=== PATIENT | female | born 1980 | race American Indian/Alaskan Native ===

== ENCOUNTER 2017-07-19 13:16 | Emergency (ER) | payer MEDICAID ==
[2017-07-19 13:28] VITALS: BP 120/66
--- NOTE | 2017-07-19 16:11 | Emergency Department Report ---
Minor Respiratory - HPI Chief Complaint: Upper Respiratory Infection Stated Complaint: COLD SYMPTOMS Time Seen by Provider: 07/19/17 15:57 Duration: 3 Days Pain Location: Nose Severity: mild (congestion) Minor Respiratory: Yes Rhinorrhea, Yes Able to Tolerate Fluids, Yes Cough, No Sore Throat, No Ear Pain, No Sick Contacts, No Hemoptysis, No Chest Pain, No Shortness of Breath, No Fever Other History: This is a 37-year-old -Indian female presents with congestion, headache, nausea with abdominal cramping for 3 days. Patient reports taking Claritin for 2 days with no improvement of symptoms. He has not been around any sick contacts. She had a productive cough with yellowish green mucus. She thought it was allergies and started taking claritin with no improvement of symptoms. She is also complaining of vaginal discharge that is creamy white with no odor for 2 days. Her last menstrual period was 2017. She is still concerns include potentially be or an STD. Denies frequency, urgency, dysuria, chest pain, shortness of breath, fever, vomiting, and body ache. ED Review of Systems ROS: Stated complaint: COLD SYMPTOMS Other details as noted in HPI Constitutional: denies: chills, fever ENT: congestion. denies: ear pain, throat pain Respiratory: cough. denies: shortness of breath, wheezing Cardiovascular: denies: chest pain, palpitations, syncope Gastrointestinal: nausea. denies: abdominal pain, vomiting, diarrhea Genitourinary: discharge. denies: urgency, dysuria Neurological: denies: headache, weakness, paresthesias Psychiatric: denies: anxiety, depression ED Past Medical Hx - Past Medical History Previous Medical History?: No - Surgical History Past Surgical History?: No - Social History Smoking Status: Current Every Day Smoker Substance Use Type: None - Medications Home Medications: Home Medications Medication Instructions Recorded Confirmed Last Taken Type Cetirizine HCl [Zyrtec] 10 mg PO DAILY #30 tablet 07/19/17 Unknown Rx Fluticasone [Flonase] 1 spray NS QDAY #1 bottle 07/19/17 Unknown Rx Guaifenesin/Pseudoephedrne HCl [Ra 1 each PO BID 7 Days #14 tab.er.12h 07/19/17 Unknown Rx Mucus Relief D ER 600-60 mg] Minor Respiratory Exam - Exam General: Vital signs noted. No distress. Alert and acting appropriately. HEENT: Yes Moist Mucous Membranes, No Pharyngeal Erythema, No Pharyngeal Exudates, No Rhinorrhea (turbinates mildly congested and clear discharge), No Conjuctival Injection, No Frontal Tenderness, No Maxillary Tenderness Ear: Neither TM Bulge, Neither TM Erythema, Neither EAC Pain, Neither EAC Discharge Neck: Yes Supple, No Adenopathy Lungs: Yes Good Air Exchange, Yes Cough, No Wheezes, No Ronchi, No Stridor, No Labored Respirations, No Retractions, No Use of Accessory Muscles, No Other Abnormal Lung Sounds Heart: Yes Regular, No Murmur Abdomen: Yes Normal Bowel Sounds, No Tenderness, No Peritoneal Signs Skin: No Rash, No Edema Neurologic: Alert and oriented, no deficits. Musculoskeletal: Unremarkable. ED Course Vital Signs 07/19/17 13:24 Temperature 97.9 F Pulse Rate 74 Respiratory 18 Rate Blood Pressure 120/66 O2 Sat by Pulse 100 Oximetry ED Medical Decision Making - Medical Decision Making 37 y.o. female that presents with URI symptoms and vaginal discharge. Patient examined by me and stable. No distress noted. Vitals stable. Obtained UA and urine tests both normal. Discharged home stable. Start Zyrtec, Flonase, Sudafed with guaifenesin. Follow up with primary care provider in 2-3 days. Critical care attestation.: If time is entered above; I have spent that time in minutes in the direct care of this critically ill patient, excluding procedure time. ED Disposition Clinical Impression: Upper respiratory disease, Vaginal discharge Disposition: - TO HOME OR SELFCARE Is pt being admited?: No Does the pt Need Aspirin: No Condition: Stable Instructions: Upper Respiratory Infection (ED) Additional Instructions: Increase fluid intake and rest. Wash hands frequently. Continue taking tylenol or ibuprofen to control fever. F/U with Primary Care Provider in 2-3 days. Return to ER if fever, SOB, or difficulty breathing after 48 hours of supportive care. Prescriptions: Cetirizine HCl [Zyrtec] 10 mg PO DAILY #30 tablet Fluticasone [Flonase] 1 spray NS QDAY #1 bottle Guaifenesin/Pseudoephedrne HCl [Ra Mucus Relief D ER 600-60 mg] 1 each PO BID 7 Days #14 tab.er.12h Referrals: [facility] [Outside] - 3-5 Days [facility] [Outside] - 3-5 Days [facility] [Outside] - 3-5 Days Forms: Work/School Release Form(ED) Time of Disposition: 16:58 Print Language: ROMANSH
[2017-07-19 16:26] LABS: Bilirubin,Urine NEG (Negative); Blood,Urine NEG (Negative); Color,Urine Yellow (Yellow); HCG Qualitative,Urine Negative (Negative); Mucus,Urine 1+ /HPF; Protein,Urine <15 mg/dL mg/dL (Negative); Urobilinogen,Urine < 2.0 mg/dL (<2.0)
== END 2017-07-19 17:14 | disposition home or self-care (01) ==
LOC: ED 13:16
DX: J06.9 Acute upper respiratory infection, unspecified (principal); F17.200 Nicotine dependence, unspecified, uncomplicated
CPT/HCPCS: 81001; 81025; 99283

== ENCOUNTER 2017-08-24 08:58 | Emergency (ER) | payer MEDICAID ==
[2017-08-24 09:31] VITALS: BP 106/61
== END 2017-08-24 11:40 | disposition left against medical advice (07) ==
LOC: ED 08:58
DX: O26.859 Spotting complicating pregnancy, unspecified trimester (principal); Z3A.00 Weeks of gestation of pregnancy not specified; Z53.21 Procedure and treatment not carried out due to patient leaving prior to being seen by health care provider

== ENCOUNTER 2018-04-11 16:15 | Emergency (ER) | payer MEDICAID ==
--- NOTE | 2018-04-11 16:31 | Emergency Department Report ---
Blank Doc - Documentation Documentation: 37-year-old female that presents to the ED for a pelvic cramping x months. Jona mariscal denies other complaints. Pain is about 9/10. Also has some vaginal discharge. Denies urinary symptoms. Well order labs Sent to [facility] for further evaluation and treatment
[2018-04-11 17:58] LABS: Bacteria,Urine 1+ /HPF (Negative); Bilirubin,Urine NEG (Negative); Blood,Urine NEG (Negative); Color,Urine Yellow (Yellow); Mucus,Urine 3+ /HPF; Urobilinogen,Urine < 2.0 mg/dL (<2.0)
[2018-04-11 18:01] LABS: HCG Qualitative,Urine Negative (Negative)
--- NOTE | 2018-04-11 20:11 | Emergency Department Report ---
ED Female HPI - General Chief complaint: Puncture Wound Stated complaint: ABD PAIN/STD CHECK Time Seen by Provider: 04/11/18 16:20 Source: patient Mode of arrival: Ambulatory Limitations: No Limitations - History of Present Illness Initial comments: This is a 37-year-old female nontoxic, well nourished in appearance, no acute signs of distress presents to the ED with c/o of vaginal discharge. Patient denies any vaginal pain or swelling. Patient denies any vaginal ulcers or lesions. Patient also stated has intermittent pelvic cramping x5 months. Patient denies any nausea, vomiting, chest pain, shortness of breathe, fever, chills, headache, back pain, numbness, tingling, stiff neck. Patient denies any urinary symptoms. Patient denies any allergies or PMH. MD Complaint: vaginal discharge -: week(s) Severity scale (0 -10): 3 Quality: cramping Consistency: intermittent, now resolved Improves with: none Worsens with: none Are you Now?: No Associated Symptoms: vaginal discharge. denies: vaginal bleeding, abdominal pain, nausea/vomiting, fever/chills, headaches, loss of appetite, dysuria, hematuria, rash, seizure, shortness of breath, syncope, weakness - Related Data Sexually active: Yes Previous Rx's Medication Instructions Recorded Last Taken Type Cetirizine HCl [Zyrtec] 10 mg PO DAILY #30 tablet 07/19/17 Unknown Rx Fluticasone [Flonase] 1 spray NS QDAY #1 bottle 07/19/17 Unknown Rx Guaifenesin/Pseudoephedrne HCl [Ra 1 each PO BID 7 Days #14 tab.er.12h 07/19/17 Unknown Rx Mucus Relief D ER 600-60 mg] metroNIDAZOLE [Flagyl] 500 mg PO Q12HR #14 tab 04/11/18 Unknown Rx Allergies Allergy/AdvReac Type Severity Reaction Status Date / Time plastic Allergy Rash Uncoded 07/19/17 13:24 ED Review of Systems ROS: Stated complaint: ABD PAIN/STD CHECK Other details as noted in HPI Constitutional: denies: chills, fever Eyes: denies: eye pain, eye discharge, vision change ENT: denies: ear pain, throat pain Respiratory: denies: cough, shortness of breath, wheezing Cardiovascular: denies: chest pain, palpitations Endocrine: no symptoms reported Gastrointestinal: denies: abdominal pain, nausea, diarrhea Genitourinary: discharge. denies: urgency, dysuria Musculoskeletal: denies: back pain, joint swelling, arthralgia Skin: denies: rash, lesions Neurological: denies: headache, weakness, paresthesias Psychiatric: denies: anxiety, depression Hematological/Lymphatic: denies: easy bleeding, easy bruising ED Past Medical Hx - Social History Smoking Status: Current Every Day Smoker Substance Use Type: Alcohol, Marijuana - Medications Home Medications: Home Medications Medication Instructions Recorded Confirmed Last Taken Type Cetirizine HCl [Zyrtec] 10 mg PO DAILY #30 tablet 07/19/17 Unknown Rx Fluticasone [Flonase] 1 spray NS QDAY #1 bottle 07/19/17 Unknown Rx Guaifenesin/Pseudoephedrne HCl [Ra 1 each PO BID 7 Days #14 tab.er.12h 07/19/17 Unknown Rx Mucus Relief D ER 600-60 mg] metroNIDAZOLE [Flagyl] 500 mg PO Q12HR #14 tab 04/11/18 Unknown Rx ED Physical Exam - General Limitations: No Limitations General appearance: alert, in no apparent distress - Head Head exam: Present: atraumatic, normocephalic - GI/Abdominal GI/Abdominal exam: Present: soft, normal bowel sounds. Absent: distended, tenderness, guarding, rebound, rigid, diminished bowel sounds - External exam: Present: other (lightning protection installer Alexandria RN present during exam). Absent: erythema, swelling, lesions, lacerations, ecchymosis, bleeding Speculum exam: Present: cervical discharge, other (lightning protection installer Alexandria RN present during exam). Absent: erythema, vaginal discharge, vaginal bleeding, foreign body, tissue, laceration Bi-manual exam: Present: normal bi-manual exam, other (lightning protection installer Alexandria RN present during exam). Absent: cervical motion tendernes, adnexal tenderness, adnexal mass, uterine enlargement, uterine tenderness - Extremities Exam Extremities exam: Present: normal inspection, full ROM - Back Exam Back exam: Present: normal inspection, full ROM - Neurological Exam Neurological exam: Present: alert, oriented X3 - Psychiatric Psychiatric exam: Present: normal affect, normal mood - Skin Skin exam: Present: warm, dry, intact, normal color. Absent: rash ED Course Vital Signs 04/11/18 16:29 Temperature 97.9 F Pulse Rate 80 Respiratory 16 Rate Blood Pressure 115/44 O2 Sat by Pulse 97 Oximetry - Reevaluation(s) Reevaluation #1: 04/11/18 20:12 Patient is speaking in full sentences with no signs of distress noted. ED Medical Decision Making - Medical Decision Making This is a 37-year-old female that presents with BV. Patient is stable was examined by me. There is no abdominal tenderness. No pelvic pain. UA obtained. Wet prep obtained. Gonorrhea chlamydia swab pending. Patient was instructed to return in 3-5 days for GC results. Patient was instructed to Follow-up with a primary care doctor in 3-5 days or if symptoms worsen and continue return to emergency room as soon as possible. At time of discharge, the patient does not seem toxic or ill in appearance. No acute signs of distress noted. Patient agrees to discharge treatment plan of care. No further questions noted by the patient. Critical care attestation.: If time is entered above; I have spent that time in minutes in the direct care of this critically ill patient, excluding procedure time. ED Disposition Clinical Impression: Bacterial vaginitis Disposition: DC-01 TO HOME OR SELFCARE Is pt being admited?: No Does the pt Need Aspirin: No Condition: Stable Instructions: Bacterial Vaginosis (ED) Additional Instructions: Follow-up with a primary care doctor in 3-5 days or if symptoms worsen and continue return to emergency room as soon as possible. Return in 3-5 days for gonorrhea and chlamydia results. Prescriptions: metroNIDAZOLE [Flagyl] 500 mg PO Q12HR #14 tab Referrals: PRIMARY CAREMD [Referring] - 3-5 Days MAICOL ECHEVERRIA MD [Staff Physician] - 3-5 Days [facility] [Outside] - 3-5 Days [facility] [Outside] - 3-5 Days Forms: Work/School Release Form(ED)
[2018-04-11 20:32] VITALS: BP 109/69
== END 2018-04-11 20:35 | disposition home or self-care (01) ==
LOC: ED 16:15
DX: N76.0 Acute vaginitis (principal); B96.89 Other specified bacterial agents as the cause of diseases classified elsewhere; F17.200 Nicotine dependence, unspecified, uncomplicated; F12.10 Cannabis abuse, uncomplicated; Z91.09 Other allergy status, other than to drugs and biological substances
CPT/HCPCS: 81001; 81025; 87210; 87591